=== PATIENT | male | born 1990 | race Two or more races ===

== ENCOUNTER → 2017-07-25 | Emergency (ER) | payer OTHER ==
[~2017-07-25] VITALS: Ht 170.2 cm; Wt 93.0 kg
[~2017-07-25] MED LIST: KETO10TA2 PO; ORPHENADRINE C100 MG PO
== END | disposition home or self-care (01) ==
LOC: ER 01:05
DX: M62.830 Muscle spasm of back (principal)

== ENCOUNTER → 2017-09-24 | Emergency (ER) | payer OTHER ==
[~2017-09-24] VITALS: Ht 167.6 cm; Wt 89.8 kg
== END | disposition left against medical advice (07) ==
LOC: ER 18:25
DX: Z53.20 Procedure and treatment not carried out because of patient's decision for unspecified reasons (principal)

== ENCOUNTER → 2018-01-31 | Emergency (ER) | payer OTHER ==
[~2018-01-31] VITALS: Ht 167.6 cm; Wt 93.0 kg
== END | disposition home or self-care (01) ==
LOC: ER 20:49
DX: G44.201 Tension-type headache, unspecified, intractable (principal)

== ENCOUNTER 2019-07-17 17:51 | Emergency (ER) | payer OTHER ==
[~2019-07-17] VITALS: Ht 170.2 cm; Wt 93.0 kg
[2019-07-17] MEDS ORDERED: CARAFATE1 GM PO (22:00)
== END 2019-07-17 22:06 | disposition home or self-care (01) ==
LOC: ER 17:51
DX: K29.00 Acute gastritis without bleeding (principal)

== ENCOUNTER 2019-12-23 03:22 | Emergency (ER) | payer OTHER ==
[~2019-12-23] VITALS: Ht 170.2 cm; Wt 90.7 kg
[~2019-12-23 03:22] MED LIST changes: +CARAFATE1 GM PO
[2019-12-23] MEDS ORDERED: LANSOPRAZOLE30 MG PO (05:00)
[2019-12-23] MEDS ORDERED: PEPCID AC20 MG PO (05:00)
== END 2019-12-23 04:57 | disposition home or self-care (01) ==
LOC: ER 03:22
DX: K29.60 Other gastritis without bleeding (principal)

== ENCOUNTER 2019-12-26 03:21 | Emergency (ER) | payer OTHER ==
[~2019-12-26] VITALS: Ht 167.6 cm; Wt 91.6 kg
[~2019-12-26 03:21] MED LIST changes: +LANSOPRAZOLE30 MG PO; +PEPCID AC20 MG PO
[2019-12-26] MEDS ORDERED: CARAFATE1 GM PO (05:21)
== END 2019-12-26 05:32 | disposition home or self-care (01) ==
LOC: ER 03:21
DX: K29.00 Acute gastritis without bleeding (principal); R10.13 Epigastric pain

== ENCOUNTER 2021-01-18 11:47 | Emergency (ER) | payer OTHER ==
[~2021-01-18] VITALS: Ht 170.2 cm; Wt 90.7 kg
== END 2021-01-18 15:50 | disposition home or self-care (01) ==
LOC: ER 11:47
DX: M62.838 Other muscle spasm (principal); M54.89 Other dorsalgia

== ENCOUNTER 2021-03-12 12:51 | Outpatient (CLI) | payer OTHER | END 2021-03-12 12:53 | disposition home or self-care (01) | LOC: LAB 12:51 | PROVIDERS: ATTEND Obstetrics & Gynecology | DX: Z20.818 Contact with and (suspected) exposure to other bacterial communicable diseases (principal); Z20.828 Contact with and (suspected) exposure to other viral communicable diseases ==

== ENCOUNTER 2021-08-04 19:38 | Emergency (ER) | payer OTHER ==
[~2021-08-04] VITALS: Ht 167.6 cm; Wt 90.7 kg
[2021-08-04] MEDS ORDERED: BUTALB-ASPIRIN1 EACH PO (23:05)
== END 2021-08-05 00:16 | disposition home or self-care (01) ==
LOC: ER 19:38
DX: G43.909 Migraine, unspecified, not intractable, without status migrainosus (principal)

== ENCOUNTER 2022-04-11 14:01 | Emergency (ER) | payer OTHER ==
[~2022-04-11] VITALS: Ht 167.6 cm; Wt 90.7 kg
[~2022-04-11 14:01] MED LIST changes: +ACETAMINOPHEN650 M2; +BUTALB-ASPIRIN1 EACH PO
== END 2022-04-11 16:52 | disposition home or self-care (01) ==
LOC: ER 14:01
DX: S13.4XXA Sprain of ligaments of cervical spine, initial encounter (principal); S23.3XXA Sprain of ligaments of thoracic spine, initial encounter; S33.9XXA Sprain of unspecified parts of lumbar spine and pelvis, initial encounter

== ENCOUNTER 2024-07-31 08:19 | Emergency (ER) | payer OTHER ==
[~2024-07-31] VITALS: Ht 167.6 cm; Wt 90.7 kg
[2024-07-31] MEDS ORDERED: FAMOtidine 10 MG/ML (4ML VIAL) IV PUSH ONE (09:45)
[2024-07-31] MEDS ORDERED: KETOROLAC TROMETHAMINE 60 MG VIAL IM ONE ×2 (09:45→10:17)
[2024-07-31] MEDS ORDERED: FAMOTIDINE/PF 20 MG/2 ML VIAL ONE (10:17)
[2024-07-31 11:17] LABS: HEMATOCRIT 43.3 % (39.0-48.0); HEMOGLOBIN 15.2 g/dL (13-16.00); MEAN CELL VOLUME 80.7 fL (80.0-100.00); MEAN CORPUSCULAR HEMOGLOBIN 28.3 pg (27.00-32.0); PLATELET COUNT 203 K/uL (150-450); RED BLOOD COUNT 5.37 M/uL (4.00-6.00); RED CELL DISTRIBUTION WIDTH 14.1 % (11.5-14.5)
[2024-07-31 11:29] LABS: INR 0.97; PROTHROMBIN TIME 10.6 SECONDS (9.0-11.5)
[2024-07-31 12:20] LABS: ALBUMIN 4.4 gm/dL (3.4-5.0); BILIRUBIN TOTAL 1.09 mg/dL (0.3-1.2); CALCIUM 9.9 mg/dL (8.5-10.1); CREATININE SERUM 1.04 mg/dL (0.70-1.30); GFR 80.81; GLOBULINA 3.3 G/DL (2.4-3.5); POTASSIUM 4.33 mEq/L (3.5-5.1); TOTAL PROTEIN 7.7 gm/dL (6.4-8.2)
== END 2024-07-31 14:25 | disposition home or self-care (01) ==
LOC: ER 08:22
PROVIDERS: General Practice
DX: M54.89 Other dorsalgia (principal); R10.13 Epigastric pain

== ENCOUNTER → 2025-03-12 | Emergency (ER) | payer OTHER | END | disposition left against medical advice (07) | LOC: ER 22:46 | DX: Z53.21 Procedure and treatment not carried out due to patient leaving prior to being seen by health care provider (principal) ==